=== PATIENT | male | born 1990 | race Caucasian/White ===

== ENCOUNTER 2016-10-11 19:48 | Emergency (ER) | payer SELFPAY ==
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
[2016-10-11 20:18] LABS: BASO % 0.2 % (0-6); EOS % 0.8 % (0-6); GRAN % 70.4 % (47-80); HEMATOCRIT 42.2 % (42.0-52.0); HEMOGLOBIN 14.6 gm/dl (14.0-18.0); LYMPH % 18.4 % (16-45); MEAN CELL VOLUME 85.3 fl (81-97); MEAN CORPUSCULAR HEMOGLOBIN 29.5 pg (27-33); MEAN CORPUSCULAR HGB CONC 34.6 g/dl (32-36); MEAN PLATELET VOLUME 10.3 fl (7.4-10.4); MONO % 10.2 % (0-9); PLATELET COUNT 290 K/uL (130-400); RED BLOOD COUNT 4.95 M/uL (4.40-5.70); RED CELL DISTRIBUTION WIDTH 12.7 % (11.5-14.5); WHITE BLOOD COUNT W/O DIFF 8.9 K/uL (4.2-12.2)
[2016-10-11 20:28] LABS: INR 1.01; PARTIAL THROMBOPLASTIN TIME 25.2 SECONDS (24.5-39.1); PROTHROMBIN TIME (PATIENT) 10.9 SECONDS (9.5-12.1)
[2016-10-11 20:37] LABS: ANION GAP 10.9 (7-16); BLOOD UREA NITROGEN 16 mg/dL (9-20); CARBON DIOXIDE 25.1 mmol/L (22-30); CREATININE 1.1 mg/dL (0.66-1.25); EST GLOMERULAR FILTRATION RATE > 60 ml/min; GLUCOSE,RANDOM 96 mg/dL (70-110)
[2016-10-11] MEDS: Diph,Pert(Acell),Tet Vac 0.5 ML SYR IM ONE (20:46)
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
== END 2016-10-11 22:38 | disposition home or self-care (01) ==
LOC: ER 19:48
DX: S10.93XA Contusion of unspecified part of neck, initial encounter (principal); V49.88XA Car occupant (driver) (passenger) injured in other specified transport accidents, initial encounter; Y92.410 Unspecified street and highway as the place of occurrence of the external cause
CPT/HCPCS: 99283; 96372; 99284; 85025; 85730; 85610; 80048; 70498; Q9967; 90715